=== PATIENT | female | born 1965 | race Caucasian/White ===

== ENCOUNTER → 2025-08-09 08:43 | Outpatient (REF) | payer OTHER, SELFPAY | LOC: RCS 08:43 | PROVIDERS: ATTENDING PHYSICIAN Nurse Practitioner Family | DX: E78.00 Pure hypercholesterolemia, unspecified (principal); F17.200 Nicotine dependence, unspecified, uncomplicated; R79.89 Other specified abnormal findings of blood chemistry; Z01.818 Encounter for other preprocedural examination; I45.4 Nonspecific intraventricular block | CPT/HCPCS: 93005 ==